=== PATIENT | female | born 1980 ===

== ENCOUNTER → 2024-09-22 14:04 | Outpatient (REF) | payer BC, SELFPAY ==
[2024-09-28 04:31] LABS: HPV, High Risk Not Detected; HPV, High Risk Source Anal
== END ==
LOC: CLAB 14:04
PROVIDERS: ATTENDING PHYSICIAN Physician Assistant
DX: Z86.19 Personal history of other infectious and parasitic diseases (principal)
CPT/HCPCS: 87624; 88112

== ENCOUNTER 2024-10-13 08:13 | Outpatient (RCR) | payer BC, SELFPAY | END 2024-10-13 23:59 | disposition home or self-care (01) | LOC: RPT 08:13 | PROVIDERS: ATTENDING PHYSICIAN Obstetrics & Gynecology Gynecology | DX: M62.89 Other specified disorders of muscle (principal); N39.3 Stress incontinence (female) (male); Z73.6 Limitation of activities due to disability | CPT/HCPCS: 97110; 97162 ==

== ENCOUNTER 2024-11-22 06:24 | Day surgery (SDC) | payer BC, SELFPAY | END 2024-11-22 12:05 | disposition home or self-care (01) | LOC: GI 06:24 | PROVIDERS: ATTENDING PHYSICIAN Surgery | DX: R19.4 Change in bowel habit (principal); Q43.8 Other specified congenital malformations of intestine; K63.89 Other specified diseases of intestine; K64.8 Other hemorrhoids; K63.5 Polyp of colon; K62.1 Rectal polyp | CPT/HCPCS: 45385; 45380; 88305 ==

== ENCOUNTER 2024-11-28 13:06 | Outpatient (RCR) | payer BC, SELFPAY | END 2024-11-28 23:59 | disposition home or self-care (01) | LOC: RPT 13:06 | PROVIDERS: ATTENDING PHYSICIAN Obstetrics & Gynecology Gynecology | DX: M62.89 Other specified disorders of muscle (principal); N39.3 Stress incontinence (female) (male); Z73.6 Limitation of activities due to disability | CPT/HCPCS: 97110; 97112; 97140; 97530 ==

== ENCOUNTER → 2025-04-13 13:48 | Outpatient (REF) | payer BC, SELFPAY | LOC: WDC 13:48 | PROVIDERS: ATTENDING PHYSICIAN Nurse Practitioner | DX: Z12.31 Encounter for screening mammogram for malignant neoplasm of breast (principal) | CPT/HCPCS: 77063; 77067 ==

== ENCOUNTER 2025-04-26 03:16 | Emergency (ER) | payer BC, SELFPAY ==
[2025-04-26 03:20] VITALS: BMI 21.4
[2025-04-26 03:22] VITALS: BP 120/73
[2025-04-26 03:23] VITALS: BP 120/73
[2025-04-26 03:47] LABS: Hematocrit 33.1 % (37.0-47.0); Hemoglobin 11.0 g/dL (12.0-16.0); Mean Corp Hgb Conc. 33.2 g/dL (33.0-37.0); Mean Corpuscular Volume 81.9 fL (81.0-99.0); Nucleated Red Blood Cells % 0 %; Platelet Count 347 10^3/uL (130-400); Red Cell Dist. Width 13.2 % (11.5-14.5)
[2025-04-26 03:55] LABS: HCG, Serum Qualitative Screen Negative
[2025-04-26 04:00] VITALS: BP 108/75
[2025-04-26 04:00] LABS: ALT (SGPT) 10 U/L (0-35); AST (SGOT) 14 U/L (14-36); Albumin 4.2 g/dl (3.5-5.0); Alkaline Phosphatase 37 U/L (38-126); Blood Urea Nitrogen 5 mg/dl (7-17); Calcium 8.7 mg/dl (8.4-10.2); Carbon Dioxide 23 mmol/L (22-30); Chloride 102 mmol/L (98-107); Estimated Creatinine Clearance > 125 ml/min; Glucose 106 mg/dl (70-99); Lipase 69 U/L (23-300); Potassium 3.6 mmol/L (3.5-5.1); Sodium 134 mmol/L (135-145); Total Protein 7.2 g/dl (6.3-8.2); eGFR > 60.00
[2025-04-26 04:08] LABS: COVID-19 Antigen Negative (Negative)
[2025-04-26] MEDS: LR 1000 IV (04:39)
[2025-04-26 05:00] VITALS: BP 102/62
[2025-04-26 06:00] VITALS: BP 102/59
--- NOTE | 2025-04-26 06:39 | ED.GENMED ---
History of Present Illness
General
Chief Complaint: Abdominal Symptoms
Source: patient
Time Seen by Provider: 04/26/25 03:50
Nursing documentation reviewed up to this point in time: agreed with
History of Present Illness
History of Present Illness:
Note:
CHIEF COMPLAINT(S)
Sudden onset of severe nausea, vomiting, and dizziness.
HISTORY OF PRESENT ILLNESS
The patient is a 44-year-old female who reported a sudden onset of symptoms around 11:00 AM, including feeling as if she was 'hit by a truck.' She experienced severe nausea, dizziness, and began vomiting in the middle of the night. The patient
mentioned drinking liquids throughout the day but was unable to eat due to nausea and feeling as if 'everythings spinning.' Initial vomiting provided some relief but subsequently worsened, especially after consuming Gatorade. The patient felt
extremely weak and dizzy and noted experiencing chills and possible fever, although she did not measure her temperature. The patient has menstruation currently but denied any blood in her diarrhea. She recalled a past severe episode diagnosed as
rotavirus, causing concern about fluid loss. The patient has returned home two days ago and noted that her child also had sudden symptoms, including fever, but managed with qbba-dvi-sdsjals children�s medication.
PAST MEDICAL AND SURIGICAL HISTORY
The patient has a history of a section.
ADDITIONAL HISTORY OBTAINED FROM SOURCES OTHER THAN THE PATIENT
The patient mentioned her child had sudden symptoms including fever two days ago but has not vomited and is being managed at home.
SOCIAL HISTORY
The patient denies smoking, alcohol, or drug use.
PLAN
Administer intravenous fluids and antiemetic medication (Ondansetron).
DIFFERENTIAL DIAGNOSIS
The Differential Diagnosis includes, in no particular order and is not limited to:
1. Gastroenteritis
2. Food poisoning
3. Vestibular neuritis
4. Migraine
5. Labyrinthitis
6. Menieres disease
7. Viral infection
8. Dehydration
9. Rotavirus
CARE-UPDATE
04/26/25 - 05:17
Patient reports slight improvement in symptoms. Will continue current treatment with IV fluids and Zofran.
Disposition:
SUMMARY OF ENCOUNTER
The patient, a 44-year-old female, presented to the emergency department with sudden onset of severe nausea, vomiting, dizziness, and diarrhea. She felt extremely weak and experienced chills, with concerns about fluid loss due to her symptoms. The
patients child had also experienced similar symptoms recently. In the emergency department, the patient was administered intravenous fluids and antiemetic medication (ondansetron). This management strategy aimed to address potential dehydration and
provide symptom relief.
DISPOSITION
Discharge.
ASSESSMENT
The patients symptoms are likely due to acute gastroenteritis or a viral infection, given the sudden onset and presence of similar symptoms in her child. Dehydration is also a concern due to fluid loss from vomiting and diarrhea.
EMERGENCY TREATMENTS ADMINISTERED
Intravenous fluids, ondansetron.
PLAN
Continue treatment with oral rehydration solutions and antiemetics as needed. Advise dietary modifications to include clear fluids, followed by a gradual return to a normal diet as tolerated. Monitor symptoms closely, and return to the emergency
department if symptoms worsen or do not improve.
MEDICATION RECONCILIATION
Ondansetron was administered in the emergency department.
MEDICAL DECISION MAKING
-Complexity of Data Reviewed: Chronic conditions affecting care include a history of section. Differential diagnosis includes gastroenteritis, food poisoning, vestibular neuritis, migraine, labyrinthitis, Menieres disease, viral infection,
dehydration, appendicitis, and rotavirus.
-Data:
Category 1: Clinical information was obtained from an independent historian, as the patients child also experienced similar symptoms.
-Risk: Discharge was considered safe due to symptom improvement and patient stability following treatment.
DIAGNOSIS
- Gastroenteritis (ICD-10: A09)
- Dehydration (ICD-10: E86.0)
Phy Exam
Physical Exam
Physical Exam:
.
Course
Orders/Labs/Results
Orders:
Orders
04/26/25 03:32
Test Result ONCE
04/26/25 03:34
COVID-19 Antigen Urgent
Source: Nasal Swab
Complete Blood Count/With Diff Urgent
Comprehensive Metabolic Panel Urgent
HCG, Serum Qualitative Screen Urgent
Lipase Urgent
Influenza A+B Rapid Molecular Urgent
LYNN Source: Nasal Swab
Specimen Description:
04/26/25 04:10
Lactated Ringers [Lr] 1,000 ml IV PRN
Abnormal Lab Results
04/26/25
03:34
RBC 4.04 L 10^6/uL
(4.20-5.40)
Hgb 11.0 L g/dL
(12.0-16.0)
Hct 33.1 L %
(37.0-47.0)
Absolute Neuts (auto) 6.8 H 10^3/uL
(1.4-6.5)
Absolute Monos (auto) 0.7 H 10^3/uL
(0.1-0.6)
Neutrophils % 76.0 H %
(42.2-75.2)
Lymphocytes % 14.1 L %
(20.5-51.1)
Sodium 134 L mmol/L
(135-145)
BUN 5 L mg/dl
(7-17)
Creatinine 0.5 L mg/dL
(0.6-1.0)
Glucose 106 H mg/dl
(70-99)
Alkaline Phosphatase 37 L U/L
(38-126)
04/26/25 03:34
04/26/25 03:34
Vital Signs
Initial and Last Documented VS:
Initial Vital Signs
Resp
27
04/26/25 03:21
Last Documented Vital Signs
Temp Pulse Resp BP Pulse Ox
98.4 F 70 16 102/59 99
04/26/25 03:22 04/26/25 06:00 04/26/25 06:00 04/26/25 06:00 04/26/25 03:22
*Pulse Oximetry
SaO2: 99
Oxygen Mode of Delivery: Room air
Patient hypoxic: no
*Critical Care Note
Total Time (30-74mins, 75-104mins- exclusive of procedures): Not Applicable
ED Attending Note
-
Portions of this chart may have been created with voice recognition software.� Occasional wrong word or��sound alike� substitutions may have occurred due to the inherent limitations of voice recognition software.
Discharge Plan
Departure
Patient Disposition: Home (Routine Discharge)
Date of Disposition: 04/26/25
Time of Disposition: 06:12
Patient with high blood pressure during this ER visit?: Yes
Condition: Good
Discharge Problem:
Acute dehydration, Diarrhea, Nausea
Instructions: Dehydration, Adult (DC), Nausea and Vomiting, Adult (DC), Dehydration in adults - ED (DC), Abdominal Pain, BLOOD PRESSURE
Prescriptions:
New
ondansetron 4 mg tablet,disintegrating
4 mg PO TID PRN (Reason: nausea and vomiting) Qty: 14 0RF
Referrals:
Allie Larsen CRNP [Family Provider, Family Practice]
Activity Restrictions/Additional Instructions:
Thank You for choosing [facility].
It was a pleasure meeting you and taking part in your care. We hope for your continued healing and wellness.
Please read discharge instructions in their entirety. However, they are for general education and may not describe your exact diagnosis at discharge. Information on your ER visit and medical conditions were discussed with you along with appropriate
follow up information...
If indicated, please take your medications as instructed and indicated on discharge paperwork.
Please schedule a follow up appointment as directed. Call to schedule an appointment
Please return to the emergency department with ANY change in, persisting, or worsening of symptoms. If any of your symptoms do not improve, or persist, or become more severe within 6-12 hours, please return to the emergency department for further
care.
Please return to the emergency department if you develop a headache, neck pain/stiffness, fever greater than 100.4F, chest pain, shortness of breath, persistent nausea, vomiting, slurred speech, difficulty walking, numbness/tingling, weakness, signs
of infection or any other symptoms that are worrisome to you.
If you have any questions or concerns please do not hesitate to call the Hospital at .
Interventions
Interventions:
*Risk Screen - Suicide Last Done: 04/26/25 03:22
*General Assessment Last Done: 04/26/25 03:47
*Neglect/Abuse Screening Last Done: 04/26/25 03:22
*ED- Fall Risk Assessment Last Done: 04/26/25 03:22
*ED COVID-19 Vaccine History Last Done: 04/26/25 03:22
*ED Influenza Vaccine History Last Done: 04/26/25 03:22
QS-Bwtmdh-Uerdifovkg Assessment Last Done: 04/26/25 03:40
Discharge Date and Time
Print Language: SRI LANKAN
== END 2025-04-26 07:00 | disposition home or self-care (01) ==
LOC: EMR 03:16
PROVIDERS: EMERGENCY PHYSICIAN Student in an Organized Health Care Education/Training Program; FAMILY PHYSICIAN Nurse Practitioner
DX: E86.0 Dehydration (principal); R19.7 Diarrhea, unspecified; R11.0 Nausea; Z11.52 Encounter for screening for COVID-19
CPT/HCPCS: 96360; 96361; 99284; 80053; 83690; 84703; 85025; 87502; 87811